=== PATIENT | female | born 1975 | race Caucasian/White ===

== ENCOUNTER 2017-05-29 17:06 | Emergency (ER) | payer OTHER ==
[2017-05-29] MEDS ORDERED: SODIUM CHLORIDE 0.9% 1,000 ML IV STA (17:36)
[2017-05-29] MEDS ORDERED: ONDANSETRON 4 MG/2 ML VIAL IVP STA (17:36)
[2017-05-29] MEDS ORDERED: HYDROmorphone 1 MG/ML 1 ML SYRINGE IVP STA (17:36)
--- NOTE | 2017-05-29 17:39 | ED ---
General Adult HPI - General Chief complaint: Abdominal Pain Stated complaint: Abd pain Time Seen by Provider: 05/29/17 17:24 Source: patient, RN notes reviewed Mode of arrival: ambulatory Limitations: no limitations - History of Present Illness Initial comments: 42-year-old female who presents emergency room today with chief complaint of lower abdominal pain with vaginal bleeding over the last 4 days. Patient does admit that she's had some spotting. States that he's had. States that had a menstrual cycle in over year and a half. Patient does admit to increased lower abdominal pain. She describes it as pressure. Patient does admit that she was treated for urinary tract infection approximately a week and a half ago finished all antibiotics. Patient denies any other complaints or symptoms at this time. Patient denies any recent fever, chills, shortness of breath, chest pain, dysuria or hematuria, constipation or diarrhea, headaches or visual changes, or any other complaints. - Related Data Home Medications Medication Instructions Recorded Confirmed Albuterol Sulfate [Proventil Hfa] 1 - 2 puff INHALATION RT-Q6H PRN 01/16/15 Metoprolol Tartrate [Lopressor] 50 mg PO DAILY 01/16/15 05/29/17 Multivitamins, Thera [Multivitamin 1 tab PO HS 01/16/15 05/29/17 (formulary)] Phentermine HCl [Adipex-P] 37.5 mg PO QAM 12/29/15 05/29/17 ALPRAZolam [Xanax] 1 mg PO DAILY PRN 05/29/17 05/29/17 Artificial Tears-Hypromellose 1 drops BOTH EYES TID PRN 05/29/17 05/29/17 [Artificial Tear Drops] Previous Rx's Medication Instructions Recorded Losartan [Cozaar] 25 mg PO DAILY #30 tab 01/18/15 Hydrocodone/Acetaminophen [Dryden 1 each PO Q6HR PRN #20 tab 05/29/17 5-325] Ondansetron Odt [Zofran ODT] 4 mg PO Q8HR PRN #20 tab 05/29/17 Allergies Allergy/AdvReac Type Severity Reaction Status Date / Time influenza virus vaccine, Allergy Unknown Verified 05/29/17 18:20 specific [Influenza Virus Vacc,Specific] amlodipine AdvReac Rapid Verified 05/29/17 18:20 Heart Rate prochlorperazine edisylate AdvReac AGITATION Verified 05/29/17 18:20 [From Compazine] prochlorperazine maleate AdvReac AGITATION Verified 05/29/17 18:20 [From Compazine] Review of Systems ROS Statement: Those systems with pertinent positive or pertinent negative responses have been documented in the HPI. ROS Other: All systems not noted in ROS Statement are negative. Past Medical History Past Medical History: Hypertension Additional Past Medical History / Comment(s): 01/16/15 Pt presents to [facility] ER with R orbital cellulitis which started last Jan,. She went to urgent care and started on clindamycin. R eye just got worse so she came into ER here yesterday and was tx with IV Abx. Eye doubled in size over nite. She went to F/u appt with her primary doctor today and was sent to ER again. R eye itches and matos and is painful down to lower R cheek. Other HX: Pt states she had a GI virus last Friday01/10/15 with N/V/D, R wrist fx with reduction x 2. History of Any Multi-Drug Resistant Organisms: None Reported Past Surgical History: Section, Tubal Ligation, Uterine Ablation Additional Past Surgical History / Comment(s): an EGD. Past Anesthesia/Blood Transfusion Reactions: No Reported Reaction Additional Past Anesthesia/Blood Transfusion Reaction / Comment(s): Pt has never recieved blood. Past Psychological History: No Psychological Hx Reported Smoking Status: Current some day smoker Past Alcohol Use History: Rare Past Drug Use History: None Reported - Past Family History Father Family Medical History: Coronary Artery Disease (CAD), Diabetes Mellitus Additional Family Medical History / Comment(s): Father has had CABG and cardiac stenting. He also suffers from agent orange exposure. Mother Family Medical History: Hypertension Sister(s) Family Medical History: No Reported History Son(s) Family Medical History: No Reported History General Exam - General Exam Comments Initial Comments: General: The patient is awake and alert, in no distress, and does not appear acutely ill. Eye: Pupils are equal, round and reactive to light, extra-ocular movements are intact. No nystagmus. There is normal conjunctiva bilaterally. No signs of icterus. Ears, nose, mouth and throat: There are moist mucous membranes and no oral lesions. Neck: The neck is supple, there is no tenderness or JVD. Cardiovascular: There is a regular rate and rhythm. No murmur, rub or gallop is appreciated. Respiratory: Lungs are clear to auscultation, respirations are non-labored, breath sounds are equal. No wheezes, stridor, rales, or rhonchi. Gastrointestinal: Normal appearance of the abdomen. Normal bowel sounds. Mild tenderness in lower Abdomen both on left and right. No rebound tenderness. No Guarding. No CVA tenderness. Musculoskeletal: Normal ROM, no tenderness. Strength 5/5. Sensation intact. Pulses equal bilaterally 2+. Neurological: A&O x 3. CN II-XII intact, There are no obvious motor or sensory deficits. Coordination appears grossly intact. Speech is normal. Skin: Skin is warm and dry and no rashes or lesions are noted. Psychiatric: Cooperative, appropriate mood & affect, normal judgment. Limitations: no limitations Course Vital Signs 05/29/17 05/29/17 17:16 18:06 Temperature 97.9 F Pulse Rate 70 64 Respiratory 16 18 Rate Blood Pressure 198/65 175/88 O2 Sat by Pulse 100 Oximetry Medical Decision Making - Medical Decision Making Case discussed in detail with attending physician Dr. Fonseca. Labs reviewed unremarkable. Patient resting comfortably in stretcher. Patient's ultrasound reviewed and does show complex enlargement of the endometrial cavity that measures 53 cm at raise the possibility of endometrial tumor. There is a 5 cm solid mass left neck region consistent with a dermoid tumor that was evident on old CT of 12/01/2015. Also discussed with the patient. Patient advised to follow-up with [facility] over the next 2 days for further evaluation. Patient will be given short prescription pain medication. Advised return here to emergency room symptoms increase worsen or for any other concerns. She states understanding and is in agreement. - Lab Data Result diagrams: 05/29/17 18:00 05/29/17 18:00 Lab Results 05/29/17 05/29/17 05/29/17 Range/Units 18:00 18:00 18:00 WBC 6.9 (3.8-10.6) k/uL RBC 5.58 H (3.80-5.40) m/uL Hgb 16.2 H (11.4-16.0) gm/dL Hct 46.1 H (34.0-46.0) % MCV 82.6 (80.0-100.0) fL MCH 29.0 (25.0-35.0) pg MCHC 35.1 (31.0-37.0) g/dL RDW 14.6 (11.5-15.5) % Plt Count 233 (150-450) k/uL Neutrophils % 68 % Lymphocytes % 22 % Monocytes % 5 % Eosinophils % 4 % Basophils % 1 % Neutrophils # 4.7 (1.3-7.7) k/uL Lymphocytes # 1.5 (1.0-4.8) k/uL Monocytes # 0.3 (0-1.0) k/uL Eosinophils # 0.3 (0-0.7) k/uL Basophils # 0.0 (0-0.2) k/uL PT (9.0-12.0) sec INR (<1.2) APTT (22.0-30.0) sec Sodium 139 (137-145) mmol/L Potassium 4.1 (3.5-5.1) mmol/L Chloride 110 H (98-107) mmol/L Carbon Dioxide 20 L (22-30) mmol/L Anion Gap 9 mmol/L BUN 11 (7-17) mg/dL Creatinine 0.60 (0.52-1.04) mg/dL Est GFR (MDRD) Af Amer >60 (>60 ml/min/1.73 sqM) Est GFR (MDRD) Non-Af >60 (>60 ml/min/1.73 sqM) Glucose 158 H (74-99) mg/dL Calcium 8.9 (8.4-10.2) mg/dL Total Bilirubin 0.4 (0.2-1.3) mg/dL AST 23 (14-36) U/L ALT 34 (9-52) U/L Alkaline Phosphatase 96 (38-126) U/L Total Protein 6.7 (6.3-8.2) g/dL Albumin 3.9 (3.5-5.0) g/dL Urine Color Yellow Urine Appearance Cloudy H (Clear) Urine pH 5.5 (5.0-8.0) Ur Specific Lar[place] 1.026 (1.001-1.035) Urine Protein 1+ H (Negative) Urine Glucose (UA) Negative (Negative) Urine Ketones Negative (Negative) Urine Blood Small H (Negative) Urine Nitrite Negative (Negative) Urine Bilirubin Negative (Negative) Urine Urobilinogen 3.0 (<2.0) mg/dL Ur Leukocyte Esterase Trace H (Negative) Urine RBC 1 (0-5) /hpf Urine WBC 4 (0-5) /hpf Ur Squamous Epith Cells 11 H (0-4) /hpf Urine Mucus Few H (None) /hpf Urine HCG, Qual (Not Detectd) 05/29/17 05/29/17 Range/Units 18:00 18:00 WBC (3.8-10.6) k/uL RBC (3.80-5.40) m/uL Hgb (11.4-16.0) gm/dL Hct (34.0-46.0) % MCV (80.0-100.0) fL MCH (25.0-35.0) pg MCHC (31.0-37.0) g/dL RDW (11.5-15.5) % Plt Count (150-450) k/uL Neutrophils % % Lymphocytes % % Monocytes % % Eosinophils % % Basophils % % Neutrophils # (1.3-7.7) k/uL Lymphocytes # (1.0-4.8) k/uL Monocytes # (0-1.0) k/uL Eosinophils # (0-0.7) k/uL Basophils # (0-0.2) k/uL PT 9.6 (9.0-12.0) sec INR 0.9 (<1.2) APTT 24.2 (22.0-30.0) sec Sodium (137-145) mmol/L Potassium (3.5-5.1) mmol/L Chloride (98-107) mmol/L Carbon Dioxide (22-30) mmol/L Anion Gap mmol/L BUN (7-17) mg/dL Creatinine (0.52-1.04) mg/dL Est GFR (MDRD) Af Amer (>60 ml/min/1.73 sqM) Est GFR (MDRD) Non-Af (>60 ml/min/1.73 sqM) Glucose (74-99) mg/dL Calcium (8.4-10.2) mg/dL Total Bilirubin (0.2-1.3) mg/dL AST (14-36) U/L ALT (9-52) U/L Alkaline Phosphatase (38-126) U/L Total Protein (6.3-8.2) g/dL Albumin (3.5-5.0) g/dL Urine Color Urine Appearance (Clear) Urine pH (5.0-8.0) Ur Specific Lar[place] (1.001-1.035) Urine Protein (Negative) Urine Glucose (UA) (Negative) Urine Ketones (Negative) Urine Blood (Negative) Urine Nitrite (Negative) Urine Bilirubin (Negative) Urine Urobilinogen (<2.0) mg/dL Ur Leukocyte Esterase (Negative) Urine RBC (0-5) /hpf Urine WBC (0-5) /hpf Ur Squamous Epith Cells (0-4) /hpf Urine Mucus (None) /hpf Urine HCG, Qual Not Detected (Not Detectd) Disposition Clinical Impression: Uterine mass Disposition: HOME SELF-CARE Condition: Good Instructions: Uterine Fibroids (ED) Additional Instructions: Please use medication as discussed. Please follow-up with [facility]/family doctor in the next 2 days. Please return to emergency room if the symptoms increase or worsen or for any other concerns. Prescriptions: Hydrocodone/Acetaminophen [Dryden 5-325] 1 each PO Q6HR PRN #20 tab PRN Reason: Pain Ondansetron Odt [Zofran ODT] 4 mg PO Q8HR PRN #20 tab PRN Reason: Nausea Referrals: Milad Sparks DO [Primary Care Provider] - 1-2 days Kali Richards MD [STAFF PHYSICIAN] - 1-2 days Time of Disposition: 19:24
[2017-05-29 18:08] VITALS: RESP 18
[2017-05-29 18:20] LABS: Basophils % (A) 1 %; CH 29.1; CHCM 35.3; Eosinophils # (A) 0.3 k/uL (0-0.7); Eosinophils % (A) 4 %; HCT 46.1 % (34.0-46.0); HDW 2.65; HGB 16.2 gm/dL (11.4-16.0); Luc # (Auto) 0.09; Luc % (Auto) 1; Lymphocytes # (A) 1.5 k/uL (1.0-4.8); Lymphocytes % (A) 22 %; MCHC 35.1 g/dL (31.0-37.0); MCV 82.6 fL (80.0-100.0); Mean Platelet Volume 7.5; Monocytes # (A) 0.3 k/uL (0-1.0); Monocytes % (A) 5 %; Neutrophils # (A) 4.7 k/uL (1.3-7.7); Neutrophils % (A) 68 %; RBC 5.58 m/uL (3.80-5.40); RDW 14.6 % (11.5-15.5); WBC 6.9 k/uL (3.8-10.6); WBC (Perox) 6.43
[2017-05-29 18:28] LABS: INR 0.9 (<1.2); Partial Thromboplastin Time 24.2 sec (22.0-30.0); Prothrombin Time 9.6 sec (9.0-12.0)
[2017-05-29 18:29] LABS: Appearance,Urine Cloudy (Clear); Bilirubin,Urine Negative (Negative); Glucose,Urine (UA) Negative (Negative); Ketones,Urine Negative (Negative); Leukocyte Esterase,Urine Trace (Negative); Mucus,Urine Few /hpf; Nitrite,Urine Negative (Negative); PH, Urine 5.5 (5.0-8.0); Particle Count 7645; Protein,Urine 1+ (Negative); RBC,Urine 1 /hpf (0-5); Specific Gravity,Urine 1.026 (1.001-1.035); Squamous Epithelial Cell,Urine 11 /hpf (0-4); UA Billing (MACRO vs. MICRO) MICRO; WBC,Urine 4 /hpf (0-5)
[2017-05-29 18:32] LABS: ALT 34 U/L (9-52); AST 23 U/L (14-36); Alkaline Phosphatase 96 U/L (38-126); Anion Gap 9 mmol/L; Blood Urea Nitrogen 11 mg/dL (7-17); Calcium 8.9 mg/dL (8.4-10.2); Carbon Dioxide 20 mmol/L (22-30); Chloride 110 mmol/L (98-107); Glucose 158 mg/dL (74-99); Non-African American GFR(MDRD) >60 (>60 ml/min/1.73 sqM); Potassium 4.1 mmol/L (3.5-5.1); Sodium 139 mmol/L (137-145); Total Bilirubin 0.4 mg/dL (0.2-1.3); Total Protein 6.7 g/dL (6.3-8.2)
--- NOTE | 2017-05-29 19:09 | US ---
EXAMINATION TYPE: US pelvis complete transvag DATE OF EXAM: 05/29/2017 COMPARISON: CT in PACS November 2015 CLINICAL HISTORY: Pelvic pain and pressure. Ablation done December 2015, no period since. History of left side dermoid TECHNIQUE: Transvaginal (TV) and Transabdominal (TA) Date of LMP: December 2015 EXAM MEASUREMENTS: Uterus: 12.0 x 6.6 x 8.3 cm Right Ovary: Not visualized with certainty Left Ovary: Not visualized with certainty 1. Uterus/Endometrium: There is an area midline that is probable enlarged uterus with a possible irr egular, fluid filled endometrium. 3. Right Ovary: Not visualized with certainty 4. Left Ovary: Not visualized with certainty 5. Bilateral Adnexa: Within the left adnexa, there is a prominent hyperechoic area visualized measur ing 5.2 x 4.4 x 4.6 cm, possible dermoid visualized on prior CT scan. 6. Posterior cul-de-sac: No free fluid visualized IMPRESSION: Ovaries are not definitely seen. There is complex enlargement of the endometrial cavity that measures 5 x 3 cm that raises the possibi lity of endometrial tumor. Follow-up is recommended. 5 cm solid mass in the left adnexal region consistent with dermoid tumor that is evident on the old C T scan of 12/01/2015.
[2017-05-29 19:30] VITALS: BP 186/84; PULSE 58; TEMP 98.1
== END 2017-05-29 19:32 | disposition home or self-care (01) ==
LOC: EC 17:06
DX: N85.8 Other specified noninflammatory disorders of uterus (principal); I10 Essential (primary) hypertension; F17.200 Nicotine dependence, unspecified, uncomplicated; Z79.899 Other long term (current) drug therapy; Z88.7 Allergy status to serum and vaccine; Z88.8 Allergy status to other drugs, medicaments and biological substances
CPT/HCPCS: 36415; 80053; 85025; 85610; 85730; 81001; 81025; 87086; 76856; 76830; 99284; 96374; 96375; 96361; J2405; J1170

== ENCOUNTER → 2017-07-29 | Outpatient (CLI) | payer OTHER ==
[2017-07-29 16:56] LABS: EKG EKG PERFORMED
[2017-07-29 17:28] LABS: Basophils # (A) 0.1 k/uL (0-0.2); Basophils % (A) 1 %; CH 29.2; CHCM 35.3; Eosinophils # (A) 0.2 k/uL (0-0.7); Eosinophils % (A) 3 %; HCT 47.2 % (34.0-46.0); HDW 2.69; Luc % (Auto) 1; Lymphocytes # (A) 1.9 k/uL (1.0-4.8); Lymphocytes % (A) 24 %; MCH 28.1 pg (25.0-35.0); MCHC 33.8 g/dL (31.0-37.0); MCV 83.1 fL (80.0-100.0); Mean Platelet Volume 7.8; Monocytes # (A) 0.4 k/uL (0-1.0); Monocytes % (A) 5 %; Neutrophils # (A) 5.4 k/uL (1.3-7.7); Neutrophils % (A) 67 %; RBC 5.68 m/uL (3.80-5.40); RDW 14.5 % (11.5-15.5); WBC (Perox) 7.61
[2017-07-29 17:41] LABS: Anion Gap 11 mmol/L; Blood Urea Nitrogen 11 mg/dL (7-17); Carbon Dioxide 22 mmol/L (22-30); Chloride 103 mmol/L (98-107); Glucose 104 mg/dL (74-99); Non-African American GFR(MDRD) >60 (>60 ml/min/1.73 sqM); Sodium 136 mmol/L (137-145)
== END | disposition home or self-care (01) ==
LOC: LABPAT 16:46
PROVIDERS: ATTEND Obstetrics & Gynecology
DX: Z01.818 Encounter for other preprocedural examination (principal); N85.7 Hematometra; R10.2 Pelvic and perineal pain; D36.9 Benign neoplasm, unspecified site; I10 Essential (primary) hypertension
CPT/HCPCS: 80051; 82565; 82947; 84520; 85025; 86850; 86900; 86901; 87086; 93005

== ENCOUNTER 2017-08-01 06:05 | Observation (INO) | payer OTHER ==
[2017-07-28 14:28] VITALS: BMI 43.2
--- NOTE | 2017-07-31 13:57 | HP ---
HISTORY AND PHYSICAL HISTORY OF PRESENT ILLNESS: The patient is a 42-year-old, 3, para 2-0-1 2 who presented to the office in approximately 2 months ago with complaints of significantly increased abdominal pain and bloating sensation. She was then sent for pelvic ultrasound and was found with a uterine "mass". This most likely represents hematometra as she has had an ablation approximately 1 to 2 years ago that developed since the time of the ablation as she has also been reporting almost daily light to heavy bleeding along with the pain. The pain is causing her to use both nonsteroidals and Blanchard 5/325 mg on a relatively daily basis. She additionally has a known history of a left dermoid approximately 5 cm in size. Given these findings, she has requested definitive therapy with hysterectomy to which we will add left salpingo-oophorectomy and most likely the right salpingectomy as well. Her history is significant for previous section and her anatomy would dictate that a da Sadi approach is the the most indicated. PAST MEDICAL HISTORY: Significant for hypertension. PAST SURGICAL HISTORY: Significant for section x2 and also the aforementioned endometrial ablation. She denies any anesthetic concerns. OBSTETRICAL HISTORY: 3, para 2-0-1-2 with 2 term sections surrounding 1 miscarriage not requiring D&C. Method of contraception is tubal ligation. GYNECOLOGIC HISTORY: Unremarkable with no history of any infections to include STDs. FAMILY HISTORY: Noncontributory. SOCIAL HISTORY: The patient is single and works [employer]. She is a former smoker, but does not smoke at this time. She reports occasional alcohol and no other social concerns. CURRENT MEDICATIONS: Current medications include: 1. Losartan daily. 2. Metoprolol daily. 3. Multivitamin daily. 4. Phentermine at the time of her last visit daily. 5. Xanax p.r.n. insomnia. 6. Additionally as noted above, she has been using Motrin 800 mg and Blanchard 5/325 mg as needed. ALLERGIES: AMLODIPINE caused bradycardia and COMPAZINE caused agitation. REVIEW OF SYSTEMS: Confined to history of present illness. PHYSICAL EXAMINATION: Vital signs are stable and the patient is afebrile. In general, this is a moderately obese, white female, in no acute distress. HEENT demonstrates PERRLA, EOMI. Her oropharynx is clear. Her neck is supple without adenopathy and the thyroid is normal to palpation. Her heart has regular rhythm and rate without murmur. Her lungs are clear to auscultation bilaterally in all li. Her abdomen is moderately obese, nondistended, has normoactive bowel sounds, is soft, nontender, and without any palpable masses, hepatosplenomegaly, or hernias. Her extremities are without any cyanosis, clubbing, or edema and are nontender to palpation bilaterally. Pelvic examination demonstrates normal external genitalia and BUS with normal vaginal mucosa and cervix. There is no cervical motion tenderness. Uterus is approximately 6 weeks in size, anteverted, mobile, nontender, normal in shape. The adnexa are nontender without any palpable masses bilaterally though there is a known dermoid present. ASSESSMENT AND PLAN: Chronic pelvic pain with presumptive hematometra and left ovarian dermoid: We discussed multiple different options and she has failed endometrial ablation. As a result, she has requested definitive therapy with removal also of the left ovary and dermoid. She is a candidate for the da Sadi approach as noted above. So we have planned for da Sadi robotically assisted laparoscopic hysterectomy with left salpingo-oophorectomy and probable right salpingectomy. The risks and complications have been discussed at length including the risk for bleeding, bleeding requiring transfusion, infection, and injury to local structures, to specifically include the bowel, bladder, and ureters. We did discuss specifically concerns of the bladder given her previous history of sections. We went on to discuss injuries that are unique to the da Sadi surgery to include thermal injury and the potential for vaginal cuff dehiscence. She has understood all these concerns and has agreed to proceed. We are scheduled for the above procedures on the morning of August 01, 2017. MMODL / IJN: [id number] /
[~2017-08-01 06:05] MED LIST: DEXAMETHASONE SOD PHOSPHATE 10 MG/ML 1 ML VIAL IV ONE; LIDOCAINE 1% 20 ML VIAL (10MG/ML) FOR IV START INTRADERMA PRN; ONDANSETRON 4 MG/2 ML VIAL IVP ONE; SCOPOLAMINE 1.5MG/72HR PATCH TRANSDERM ONE; ceFAZolin 2 GM in SODIUM CHLORIDE 0.9% 100 ML IVPB ONE
[2017-08-01 06:42] LABS: Glucose,Whole Blood 125 mg/dL (75-99)
[2017-08-01] MEDS: LACTATED RINGERS 1,000 ML IV SCH ×4 (06:44→21:37)
[2017-08-01] MEDS ORDERED: MIDAZOLAM 2 MG/2 ML VIAL IV ONE (06:53)
[2017-08-01] MEDS ORDERED: MORPHINE SULFATE 10 MG/ML SYRINGE ONE (07:32)
[2017-08-01] MEDS ORDERED: GLYCOPYRROLATE 0.2 MG/ML 2 ML VIAL ONE (07:32)
[2017-08-01] MEDS ORDERED: MIDAZOLAM 2 MG/2 ML VIAL ONE (07:32)
[2017-08-01] MEDS ORDERED: SUCCINYLCHOLINE CHLORIDE 100 MG/5 ML SYR IV ONE (07:32)
[2017-08-01] MEDS ORDERED: ROCURONIUM BROMIDE 10 MG/ML 10 ML VIAL IV ONE (07:32)
[2017-08-01] MEDS ORDERED: NEOSTIGMINE 1 MG/ML 10 ML VIAL ONE (07:32)
[2017-08-01] MEDS ORDERED: fentaNYL (PF) 50 MCG/ML 2 ML AMP ONE (07:32)
[2017-08-01] MEDS ORDERED: LIDOCAINE 1% INJ 10MG/ML (20 ML MDV) ONE (07:32)
[2017-08-01] MEDS ORDERED: PROPOFOL 10 MG/ML 20 ML VIAL IV ONE (07:32)
[2017-08-01] MEDS ORDERED: HYDROmorphone (PF) 1 MG/ML ONE (07:32)
[2017-08-01] MEDS ORDERED: diphenhydrAMINE 50 MG/ML 1 ML VIAL IVP PRN (07:42)
[2017-08-01] MEDS ORDERED: ONDANSETRON 4 MG/2 ML VIAL IVP PRN (07:42)
[2017-08-01] MEDS ORDERED: Acetaminophen-Codeine 300-30mg TAB PO PRN ×2 (07:42)
[2017-08-01] MEDS ORDERED: SIMETHICONE 80 MG CHEWABLE PO PRN (07:42)
[2017-08-01] MEDS ORDERED: IBUPROFEN 600 MG TAB PO PRN (07:42)
[2017-08-01] MEDS ORDERED: METOCLOPRAMIDE 5 MG/ML 2 ML VIAL IVP PRN (07:42)
[2017-08-01] MEDS ORDERED: ZOLPIDEM 5 MG TAB PO PRN (07:42)
[2017-08-01] MEDS ORDERED: BUPIVACAINE (PF) 0.5% 30 ML VIAL SQ ONE (08:31)
--- NOTE | 2017-08-01 10:02 | P.OP ---
Date of Procedure: 08/01/17 Preoperative Diagnosis: #1. Chronic pelvic pain #2. Dysfunctional uterine bleeding #3. Left ovarian dermoid cyst #4. Presumptive hematometra Postoperative Diagnosis: Same Procedure(s) Performed: #1. Da Sadi robotically assisted laparoscopic hysterectomy #2. Left salpingo- oophorectomy #3. Right salpingectomy #4. Diagnostic cystoscopy Anesthesia: MATIASA Surgeon: Kali Richards Internist Medical Doctor Md #1: Kierra Amor Estimated Blood Loss (ml): 50 IV fluids (ml): 1,000 Urine output (ml): 600 Pathology: other (Uterus, bilateral fallopian tubes, and left ovary) Condition: stable Disposition: PACU Operative Findings: Preoperative pelvic exam demonstrated under anesthesia a slightly larger uterus than appreciated in the office in approximately 5-6 weeks' size. I was unable to appreciate the left ovarian dermoid. Intraoperatively, the uterus was noted to be very large and bulky as well as soft consistent with the diagnosis of either adenomyosis or hematometa, the latter being confirmed during removal of the uterus. The right ovary was essentially normal to inspection with evidence of a recent ovulatory event. The left ovary was enlarged consistent with the and intraovarian cystic structure which was left intact. During removal of the uterus it was discovered that the uterine cavity was full of old blood similar in appearance to an endometrioma. The uterus, left tube and ovary were removed in one piece while the right fallopian tube was removed separately at the beginning of the case. All specimens were sent together. Following the procedure, the stitch lines all appeared to be entirely hemostatic. Cystoscopy demonstrated bilateral ureteral jets and examination of the dome of the bladder both from a cystoscopic and laparoscopic perspective demonstrated no evidence of injury. Description of Procedure: The patient was prepped and draped in usual fashion after general endotracheal anesthesia was administered by the anesthesiologist. A weighted speculum was placed and the cervix sounded to approximately 7-8 cm. As result, a 6 cm uterine manipulator was selected. The cervix was measured and a 2.5 cm Regan cup selected. A stay suture of 0 Vicryl was placed from 10:00 to 8:00 and from 2: 00 to 4:00 on the cervical clock face and firmly tied down. The Angie manipulation device was then placed and seated into the uterus properly. It was then tied down using the stay sutures. A Ramírez catheter was placed in the bladder. Attention was then turned to the abdomen where a site was selected approximately 2-3 cm above the umbilicus in the midline where an 8 mm incision was made in the transverse plane allowing insertion of a 5 mm optical trocar under direct visualization without difficulty. A pneumoperitoneum was then established. A site was selected in the left lower quadrant approximately 12 cm lateral and 4 centimeters inferior to the optical trocar where an 8 mm incision was made in the transverse plane allowing insertion of a da Sadi trocar under direct vision station without difficulty. The distance between the 2 incisions was then bisected and a site selected approximately 2-3 cm above the optical trocar for an assistant drafter port. A roughly 10 mm incision was made in the transverse plane allowing insertion of a 10 mm trocar under direct vision station without difficulty. A da Sadi port was then placed in the mirror image spot in the right lower quadrant to the left lower quadrant under direct vision station without difficulty. The scope was shifted to a side-port the 5 mm and millimeter optical trocar replaced with a 8mm da Sadi optical trocar under direct visual station. Once the trochars were seated in the proper orientation, the robot was docked to the patient and I presented to the console. The segment of right fallopian tube was removed with bipolar cautery followed by sharp cautery and removed through the assistant drafter's port for later transport to pathology with the remainder of the specimen. The utero-ovarian ligament was then transected with the [place] bipolar cautery forceps followed by cutting it sharply with the monopolar cautery scissors. This was carried out across the round ligament on that side at which time the bladder peritoneum was developed across the midline. The uterine vasculature was skeletonized to some degree and attention turned to the left side. The ovary was elevated and, as it contained what is presumptively thought to be a dermoid cyst, the infundibulopelvic ligament cauterized with the [place] and then cut sharply with the cautery scissors. The dissection was carried down and around the fallopian tube and through the round ligament using cautery as before. Uterine vasculature was then skeletonized and the remainder of the bladder peritoneum developed across the midline. As the bladder peritoneum was in excellent view, further dissection was carried out to reflect the bladder distally. There was some scarring from previous sections which was handled without difficulty. The uterine vasculature was then cauterized bilaterally with the [place] bipolar cautery forceps and then cut sharply with cautery. As the uterus was very difficult to manipulate anteriorly, the decision was made to enter the vaginal cuff anteriorly where it was quite apparent. The monopolar cautery scissors were utilized to enter sharply after insufflating the cuff on the Angie manipulator. This incision was carried around following the Regan cup. Any points of bleeding along the way were made hemostatic either with the [place] bipolar cautery or with point cautery using the scissors. The incisions were then ultimately connected posteriorly and the specimen brought towards the vagina. The size and bulk of the uterine fundus made it very difficult to deliver the uterus through the small vaginal cuff opening. Ultimately with probing and some degree of morcellation, the uterine cavity was further entered at which time a significant amount of old endometriotic- appearing blood was released confirming the diagnosis of hematometra. Once the uterus had been adequately decompressed, the uterus and left ovary were removed into the vagina. The monopolar cautery scissors were replaced with a laparoscopic suturing device and a suture was introduced into the abdomen. The O Stratafix suture was then utilized to close the vaginal cuff from the right angle to left angle without difficulty. Thorough irrigation was then carried out and the stitch lines examined and found to be hemostatic. Any small points of bleeding were made hemostatic with the [place] bipolar cautery forceps. Once it was determined that hemostasis was adequate, the 2 lateral instruments removed but the scope left in place. I then presented to the patient and removed the Ramírez catheter. A diagnostic cystoscope was placed within the bladder and the bladder filled with the sterile water. The bilateral ureteral hillock's were observed and both noted to be peristalsing without difficulty. The dome of the bladder was examined from both the cystoscopic and laparoscopic perspective with no evidence of any damage or leaking. All instrumentation was then removed and the Ramírez catheter replaced. The robot was removed from the patient and all ports removed. The skin incisions were closed with interrupted stitches of 4-0 Vicryl followed by half-inch Steri-Strips placed with Mastisol. The incisions were infused with half percent Marcaine without epinephrine, a total of 10 mL equally divided among the 4 incisions. Estimated blood loss for the case was approximately 50 mL. There were no complications. All sponge, instrument, and needle counts were correct. The patient tolerated the procedure well and proceeded to the recovery room in stable condition.
[2017-08-01] MEDS: HYDROmorphone 1 MG/ML 1 ML SYRINGE IVP PRN ×2 (10:31→10:46)
[2017-08-01] MEDS: KETOROLAC 30 MG/ML 1 ML VIAL IVP PRN ×3 (10:36→21:35)
[2017-08-01] MEDS: SENNOSIDES-DOCUSATE SODIUM 1 EACH TAB PO SCH ×2 (12:33→21:35)
[2017-08-01] MEDS: HYDROcodone/APAP 5-325MG 1 EACH TAB PO PRN ×2 (17:35→23:58)
[2017-08-02] MEDS: HYDROcodone/APAP 5-325MG 1 EACH TAB PO PRN ×2 (00:01→07:43)
[2017-08-02] MEDS: KETOROLAC 30 MG/ML 1 ML VIAL IVP PRN (07:43)
[2017-08-02] MEDS: LACTATED RINGERS 1,000 ML IV SCH (07:46)
[2017-08-02 08:00] LABS: Basophils % (A) 0 %; CH 28.3; CHCM 33.5; Eosinophils % (A) 0 %; HCT 39.7 % (34.0-46.0); HGB 13.6 gm/dL (11.4-16.0); Luc # (Auto) 0.18; Luc % (Auto) 1; Lymphocytes # (A) 1.9 k/uL (1.0-4.8); Lymphocytes % (A) 13 %; MCH 29.2 pg (25.0-35.0); MCHC 34.4 g/dL (31.0-37.0); MCV 84.9 fL (80.0-100.0); Mean Platelet Volume 7.5; Monocytes # (A) 0.4 k/uL (0-1.0); Monocytes % (A) 3 %; Neutrophils # (A) 12.2 k/uL (1.3-7.7); Neutrophils % (A) 83 %; RBC 4.67 m/uL (3.80-5.40); RDW 13.6 % (11.5-15.5); WBC 14.7 k/uL (3.8-10.6); WBC (Perox) 15.38
[2017-08-02] MEDS ORDERED: METOPROLOL TARTRATE 50 MG TAB PO SCH (09:00)
[2017-08-02] MEDS ORDERED: LOSARTAN 25 MG TAB PO SCH (09:00)
[2017-08-02] MEDS: SENNOSIDES-DOCUSATE SODIUM 1 EACH TAB PO SCH (09:12)
[2017-08-02 10:08] VITALS: BP 142/79; PULSE 75; RESP 20; TEMP 97.6
--- NOTE | 2017-08-02 10:28 | P.DS ---
Providers Date of admission: 08/02/17 08:57 Expected date of discharge: 08/02/17 Attending physician: Kali Richards Primary care physician: Milad Sparks - Discharge Diagnosis(es) (1) Chronic pelvic pain in female Current Visit: Yes Status: Acute (2) Dermoid cyst of left ovary Current Visit: Yes Status: Acute Hospital Course: The patient is a 42-year-old 3 para 2011 who presented to the office with complaints of significantly increasing pelvic pain and bloating. She had a pelvic ultrasound done which demonstrated a uterine mass. She has a history of a previous endometrial ablation and the mass was felt to be most consistent with hematometra which was leading to significant pelvic pain and dysfunctional uterine bleeding on a relatively daily basis. She additionally had a well- documented left ovarian dermoid cyst which she requested also to be removed. She requested definitive therapy and was only a candidate given her anatomy and her history of 2 previous sections for a da Sadi approach versus open. She was taken to the operating room where she underwent da Sadi robotically assisted laparoscopic hysterectomy with left salpingo-oophorectomy and right salpingectomy followed by a diagnostic cystoscopy. All of these were in an uncomplicated fashion. In the process of removal of the uterus, the uterine cavity was entered and was noted to be filled with old blood consistent with the diagnosis as outlined above. It was ultimately decompressed enough to remove through the vagina and the procedure completed in an uncomplicated fashion. Postoperatively, the patient has done quite well. Her vital signs remained stable and her temperature is afebrile. She was tolerating regular diet by the morning of postoperative day #1 was deemed stable for discharge on that day. She was discharged to home to follow-up in the office in 2 weeks for incision checks and 8 weeks routinely. Discharge instructions included calling for any significantly increased fever, abdominal pain, incisional complaints, vaginal bleeding, or anything else that concerned her. She was additionally instructed to have nothing in the vagina for at least 8 weeks time to include intercourse. She was to abstain from driving until off of all pain medications or 2 weeks' time, whichever came first. She understood her instructions and agrees to follow up as noted above. Discharge medications included all of her normal home medications as well as a prescription for [place] 5/325 mg, 1-2 by mouth every 6 hours when necessary pain, #30 dispensed with no refills. Discharge hemoglobin and hematocrit were 13.6 and 39.7 respectively. Procedures: #1. Da Sadi robotically assisted laparoscopic hysterectomy #2. Left salpingo- oophorectomy #3. Right salpingectomy #4. Diagnostic cystoscopy Patient Condition at Discharge: Good Plan - Discharge Summary New Discharge Prescriptions: No Action Metoprolol Tartrate [Lopressor] 50 mg PO DAILY Multivitamins, Thera [Multivitamin (formulary)] 1 tab PO DAILY Albuterol Sulfate [Proventil Hfa] 1 - 2 puff INHALATION Q6HR PRN PRN Reason: Shortness Of Breath Losartan [Cozaar] 25 mg PO DAILY #30 tab Phentermine HCl [Adipex-P] 37.5 mg PO QAM Ibuprofen [Motrin] 600 - 800 mg PO Q6HR PRN PRN Reason: Pain Omeprazole (Otc) 1 tab PO DAILY PRN PRN Reason: Heartburn Discharge Medication List Albuterol Sulfate [Proventil Hfa] 1 - 2 puff INHALATION Q6HR PRN 01/16/15 [ History] Metoprolol Tartrate [Lopressor] 50 mg PO DAILY 01/16/15 [History] Multivitamins, Thera [Multivitamin (formulary)] 1 tab PO DAILY 01/16/15 [History ] Losartan [Cozaar] 25 mg PO DAILY #30 tab 01/18/15 [Rx] Phentermine HCl [Adipex-P] 37.5 mg PO QAM 12/29/15 [History] Ibuprofen [Motrin] 600 - 800 mg PO Q6HR PRN 07/28/17 [History] Omeprazole (Otc) 1 tab PO DAILY PRN 07/28/17 [History] Follow up Appointment(s)/Referral(s): Kali Richards MD [STAFF PHYSICIAN] - 2 Weeks Discharge Disposition: HOME SELF-CARE
== END 2017-08-02 12:21 | disposition home or self-care (01) ==
LOC: OR 06:05 → 6PED 09:51 → OR 08-02 08:56 → 6PED 08-02 08:57
PROVIDERS: ADMIT Obstetrics & Gynecology; ATTEND Obstetrics & Gynecology
DX: D27.1 Benign neoplasm of left ovary (principal); N85.7 Hematometra; D25.1 Intramural leiomyoma of uterus; N83.8 Other noninflammatory disorders of ovary, fallopian tube and broad ligament; G89.29 Other chronic pain; I10 Essential (primary) hypertension; Z87.891 Personal history of nicotine dependence; Z79.899 Other long term (current) drug therapy; Z88.8 Allergy status to other drugs, medicaments and biological substances
CPT/HCPCS: 58573; S2900; 81025; 85025; 86850; 86900; 86901; 88307

== ENCOUNTER 2017-10-28 01:26 | Emergency (ER) | payer OTHER ==
[2017-10-28 01:36] VITALS: RESP 18; TEMP 97.5
--- NOTE | 2017-10-28 02:00 | ED ---
Abdominal Pain HPI - General Chief Complaint: Abdominal Pain Stated Complaint: Poss UTI Time Seen by Provider: 10/28/17 01:38 Source: patient Mode of arrival: ambulatory Limitations: no limitations - History of Present Illness Initial Comments: Patient has a 42-year-old woman who presents to be evaluated for abdominal back discomfort. She states that she was in her usual state of health until Friday. On Friday she had a fever but states she was not able to identify the source of that she had no other symptoms. On Friday she states she began having some symptoms she attributed to urinary tract infection, she was having some frequency and some dysuria as well as urgency. She states that over the past day to 2 she is also noticed that her urine has become cloudy. This morning she started having suprapubic discomfort that radiates towards her back. She describes it as aching, symptoms are constant, moderate intensity. She has not noted worsening or relieving factors. She states it reminds her previous urinary tract infection MD Complaint: abdominal pain Onset/Timin -: days(s) Location: suprapubic Radiation: back Migration to: no migration Severity: moderate Quality: aching Consistency: constant Improves With: nothing Associated Symptoms: dysuria - Related Data Home Medications Medication Instructions Recorded Confirmed Albuterol Sulfate [Proventil Hfa] 1 - 2 puff INHALATION RT-Q6H PRN 01/16/15 Metoprolol Tartrate [Lopressor] 50 mg PO DAILY 01/16/15 08/02/17 Multivitamins, Thera [Multivitamin 1 tab PO DAILY 01/16/15 08/02/17 (formulary)] Phentermine HCl [Adipex-P] 37.5 mg PO QAM 12/29/15 08/02/17 Ibuprofen [Motrin] 600 - 800 mg PO Q6HR PRN 07/28/17 08/02/17 Omeprazole 20 mg PO DAILY PRN 08/02/17 08/02/17 Previous Rx's Medication Instructions Recorded Losartan [Cozaar] 25 mg PO DAILY #30 tab 01/18/15 Phenazopyridine [Pyridium] 100 mg PO TID #6 tablet 10/28/17 Sulfamethox-Tmp 800-160Mg [Bactrim 1 each PO Q12HR #6 tab 10/28/17 Ds] Allergies Allergy/AdvReac Type Severity Reaction Status Date / Time influenza virus vaccine, Allergy Unknown Verified 10/28/17 01:36 specific [Influenza Virus Vacc,Specific] amlodipine AdvReac DECREASED Verified 10/28/17 01:36 HEART BEAT (30 PER MINUTE) prochlorperazine edisylate AdvReac AGITATION Verified 10/28/17 01:36 [From Compazine] prochlorperazine maleate AdvReac AGITATION Verified 10/28/17 01:36 [From Compazine] Review of Systems ROS Statement: Those systems with pertinent positive or pertinent negative responses have been documented in the HPI. ROS Other: All systems not noted in ROS Statement are negative. Constitutional: Reports: as per HPI, fever. Denies: chills Respiratory: Denies: cough, dyspnea, wheezes Cardiovascular: Denies: chest pain, palpitations, dyspnea on exertion Gastrointestinal: Reports: as per HPI, abdominal pain. Denies: nausea, vomiting , diarrhea, constipation Genitourinary: Reports: as per HPI, urgency, dysuria, frequency. Denies: discharge Musculoskeletal: Reports: as per HPI, back pain Skin: Denies: rash Neurological: Denies: headache Past Medical History Past Medical History: GERD/Reflux, Hypertension Additional Past Medical History / Comment(s): HX OF RIGHT WRIST FX., ENLARGED LIVER, STATES REACTIVE AIRWAY TO SMELLS. 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 , BORDERLINE DIABETES. History of Any Multi-Drug Resistant Organisms: None Reported Past Surgical History: Section, Hysterectomy, Tubal Ligation, Uterine Ablation Additional Past Surgical History / Comment(s): EGD. Past Anesthesia/Blood Transfusion Reactions: No Reported Reaction Additional Past Anesthesia/Blood Transfusion Reaction / Comment(s): . Past Psychological History: Anxiety Smoking Status: Current every day smoker Past Alcohol Use History: Rare Past Drug Use History: None Reported - Past Family History Father Family Medical History: Coronary Artery Disease (CAD), Diabetes Mellitus Additional Family Medical History / Comment(s): Father has had CABG and cardiac stenting. He also suffers from agent orange exposure. Mother Family Medical History: Hypertension Sister(s) Family Medical History: No Reported History Son(s) Family Medical History: No Reported History General Exam Limitations: no limitations General appearance: alert, in no apparent distress, obese Head exam: Present: atraumatic, normocephalic Eye exam: Present: normal appearance. Absent: scleral icterus, conjunctival injection Respiratory exam: Present: normal lung sounds bilaterally. Absent: respiratory distress, wheezes, rales, rhonchi, stridor Cardiovascular Exam: Present: regular rate, normal rhythm, normal heart sounds. Absent: systolic murmur, diastolic murmur, rubs, gallop GI/Abdominal exam: Present: soft. Absent: distended, tenderness, guarding, rebound, rigid, mass Extremities exam: Present: normal inspection. Absent: pedal edema Back exam: Present: normal inspection. Absent: CVA tenderness (R), CVA tenderness (L) Neurological exam: Present: alert Skin exam: Present: warm, dry, intact, normal color. Absent: rash Course Vital Signs 10/28/17 01:32 Temperature 97.5 F L Pulse Rate 75 Respiratory 18 Rate Blood Pressure 189/88 O2 Sat by Pulse 100 Oximetry Medical Decision Making - Lab Data Lab Results 10/28/17 10/28/17 Range/Units 01:40 01:40 Urine Color Colorless Urine Appearance Clear (Clear) Urine pH 6.5 (5.0-8.0) Ur Specific [place] 1.002 (1.001-1.035) Urine Protein Negative (Negative) Urine Glucose (UA) Negative (Negative) Urine Ketones Negative (Negative) Urine Blood Moderate H (Negative) Urine Nitrite Negative (Negative) Urine Bilirubin Negative (Negative) Urine Urobilinogen <2.0 (<2.0) mg/dL Ur Leukocyte Esterase Large H (Negative) Urine RBC 1 (0-5) /hpf Urine WBC 28 H (0-5) /hpf Ur Squamous Epith Cells 2 (0-4) /hpf Urine Bacteria Occasional H (None) /hpf Urine Mucus Rare H (None) /hpf Urine HCG, Qual Not Detected (Not Detectd) Disposition Clinical Impression: Urinary tract infection Disposition: HOME SELF-CARE Condition: Good Instructions: Urinary Tract Infection in Women (ED) Prescriptions: Phenazopyridine [Pyridium] 100 mg PO TID #6 tablet Sulfamethox-Tmp 800-160Mg [Bactrim Ds] 1 each PO Q12HR #6 tab Referrals: Milad Sparks DO [Primary Care Provider] - 1-2 days
[2017-10-28 02:05] LABS: Appearance,Urine Clear (Clear); Bacteria,Urine Occasional /hpf; Bilirubin,Urine Negative (Negative); Glucose,Urine (UA) Negative (Negative); Ketones,Urine Negative (Negative); Leukocyte Esterase,Urine Large (Negative); Mucus,Urine Rare /hpf; Nitrite,Urine Negative (Negative); PH, Urine 6.5 (5.0-8.0); Particle Count 2919; Protein,Urine Negative (Negative); RBC,Urine 1 /hpf (0-5); Specific Gravity,Urine 1.002 (1.001-1.035); Squamous Epithelial Cell,Urine 2 /hpf (0-4); UA Billing (MACRO vs. MICRO) MICRO; Urobilinogen,Urine <2.0 mg/dL (<2.0); WBC,Urine 28 /hpf (0-5)
[2017-10-28] MEDS ORDERED: PHENAZOPYRIDINE 100 MG TAB PO STA (02:17)
[2017-10-28] MEDS ORDERED: SULFAMETHOX-TMP 800-160MG 1 EACH TAB PO STA (02:17)
[2017-10-28 02:37] VITALS: BP 167/80; PULSE 69
== END 2017-10-28 02:35 | disposition home or self-care (01) ==
LOC: EC 01:26
DX: N39.0 Urinary tract infection, site not specified (principal); I10 Essential (primary) hypertension; E66.9 Obesity, unspecified; F17.200 Nicotine dependence, unspecified, uncomplicated; Z79.899 Other long term (current) drug therapy; Z88.7 Allergy status to serum and vaccine; Z88.8 Allergy status to other drugs, medicaments and biological substances; Z86.39 Personal history of other endocrine, nutritional and metabolic disease; Z68.41 Body mass index [BMI] 40.0-44.9, adult
CPT/HCPCS: 81001; 81025; 99284

== ENCOUNTER 2018-05-24 00:13 | Emergency (ER) | payer OTHER ==
[2018-05-24] MEDS ORDERED: SODIUM CHLORIDE 0.9% 1,000 ML IV STA (00:56)
[2018-05-24 01:14] LABS: Basophils % (A) 0 %; Eosinophils # (A) 0.2 k/uL (0-0.7); Eosinophils % (A) 2 %; HCT 45.1 % (34.0-46.0); HGB 15.6 gm/dL (11.4-16.0); Lymphocytes # (A) 1.4 k/uL (1.0-4.8); Lymphocytes % (A) 14 %; MCH 28.1 pg (25.0-35.0); MCHC 34.5 g/dL (31.0-37.0); MCV 81.3 fL (80.0-100.0); Mean Platelet Volume 7.6; Monocytes # (A) 0.5 k/uL (0-1.0); Monocytes % (A) 5 %; Neutrophils # (A) 8.2 k/uL (1.3-7.7); Neutrophils % (A) 79 %; Platelet Count 219 k/uL (150-450); RBC 5.55 m/uL (3.80-5.40); RDW 14.1 % (11.5-15.5); WBC 10.3 k/uL (3.8-10.6)
--- NOTE | 2018-05-24 01:17 | XR ---
EXAMINATION TYPE: XR chest 2V DATE OF EXAM: 05/24/2018 COMPARISON: NONE HISTORY: Chest pain TECHNIQUE: Frontal and lateral views of the chest are obtained. FINDINGS: Heart and mediastinum are normal. Lungs are clear. Diaphragm is normal. Bony thorax appear s normal. IMPRESSION: Normal chest
[2018-05-24 01:23] LABS: ALT 30 U/L (9-52); AST 18 U/L (14-36); Albumin 4.2 g/dL (3.5-5.0); Alkaline Phosphatase 93 U/L (38-126); Anion Gap 8 mmol/L; Blood Urea Nitrogen 12 mg/dL (7-17); Calcium 9.8 mg/dL (8.4-10.2); Carbon Dioxide 21 mmol/L (22-30); Chloride 110 mmol/L (98-107); Glucose 144 mg/dL (74-99); Magnesium 2.2 mg/dL (1.6-2.3); Potassium 4.3 mmol/L (3.5-5.1); Sodium 139 mmol/L (137-145); Total Bilirubin 0.3 mg/dL (0.2-1.3); Total Protein 6.9 g/dL (6.3-8.2)
[2018-05-24 01:25] LABS: Partial Thromboplastin Time 24.1 sec (22.0-30.0); Prothrombin Time 9.6 sec (9.0-12.0)
[2018-05-24 01:49] LABS: Creatine Kinase 105 U/L (30-135)
[2018-05-24 02:02] LABS: Creatine Kinase MB 0.7 ng/mL (0.0-2.4); Troponin I <0.012 ng/mL (0.000-0.034)
[2018-05-24 02:39] VITALS: RESP 15
--- NOTE | 2018-05-24 03:03 | ED ---
Recheck HPI - General Chief Complaint: Recheck/Abnormal Lab/Rx Stated Complaint: High BP, palpitations Time Seen by Provider: 05/24/18 00:29 Source: patient, RN notes reviewed, old records reviewed Mode of arrival: wheelchair Limitations: no limitations - History of Present Illness Initial Comments: 43-year-old female who reports that she's been under immense stress over the past two months presents today with your complaining of palpitations and high blood pressure. She took her blood pressure at home was 190/90. She said she took a double dose of metroprolol all is well is a Vistaril. Reports that she' s also having some episodes of palpitations. Patient said she has no chest pain shortness of breath this time. Denies any nausea vomiting diaphoresis.Patient is a smoker. She questions it for symptoms are just related to anxiety. - Related Data Home Medications Medication Instructions Recorded Confirmed Albuterol Sulfate [Proventil Hfa] 1 - 2 puff INHALATION RT-Q6H PRN 01/16/15 Metoprolol Tartrate [Lopressor] 50 mg PO DAILY 01/16/15 08/02/17 Multivitamins, Thera [Multivitamin 1 tab PO DAILY 01/16/15 08/02/17 (formulary)] Phentermine HCl [Adipex-P] 37.5 mg PO QAM 12/29/15 08/02/17 Ibuprofen [Motrin] 600 - 800 mg PO Q6HR PRN 07/28/17 08/02/17 Omeprazole 20 mg PO DAILY PRN 08/02/17 08/02/17 Previous Rx's Medication Instructions Recorded Losartan [Cozaar] 25 mg PO DAILY #30 tab 01/18/15 Phenazopyridine [Pyridium] 100 mg PO TID #6 tablet 10/28/17 Sulfamethox-Tmp 800-160Mg [Bactrim 1 each PO Q12HR #6 tab 10/28/17 Ds] Allergies Allergy/AdvReac Type Severity Reaction Status Date / Time influenza virus vaccine, Allergy Unknown Verified 05/24/18 00:22 specific [Influenza Virus Vacc,Specific] amlodipine AdvReac DECREASED Verified 05/24/18 00:22 HEART BEAT (30 PER MINUTE) prochlorperazine edisylate AdvReac AGITATION Verified 05/24/18 00:22 [From Compazine] prochlorperazine maleate AdvReac AGITATION Verified 05/24/18 00:22 [From Compazine] Review of Systems ROS Statement: Those systems with pertinent positive or pertinent negative responses have been documented in the HPI. ROS Other: All systems not noted in ROS Statement are negative. Past Medical History Past Medical History: GERD/Reflux, Hypertension Additional Past Medical History / Comment(s): HX OF RIGHT WRIST FX., ENLARGED LIVER, STATES REACTIVE AIRWAY TO SMELLS. 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 , BORDERLINE DIABETES. History of Any Multi-Drug Resistant Organisms: None Reported Past Surgical History: Section, Hysterectomy, Tubal Ligation, Uterine Ablation Additional Past Surgical History / Comment(s): EGD. Past Anesthesia/Blood Transfusion Reactions: No Reported Reaction Additional Past Anesthesia/Blood Transfusion Reaction / Comment(s): . Past Psychological History: Anxiety Smoking Status: Current every day smoker Past Alcohol Use History: Rare Past Drug Use History: None Reported - Past Family History Father Family Medical History: Coronary Artery Disease (CAD), Diabetes Mellitus Additional Family Medical History / Comment(s): Father has had CABG and cardiac stenting. He also suffers from agent orange exposure. Mother Family Medical History: Hypertension Sister(s) Family Medical History: No Reported History Son(s) Family Medical History: No Reported History General Exam - General Exam Comments Initial Comments: Well appearing 43 year old female, no distress. Limitations: no limitations General appearance: alert, in no apparent distress Head exam: Present: atraumatic, normocephalic, normal inspection Eye exam: Present: normal appearance, PERRL, EOMI. Absent: scleral icterus, conjunctival injection, periorbital swelling ENT exam: Present: normal exam, mucous membranes moist Neck exam: Present: normal inspection. Absent: tenderness, meningismus, lymphadenopathy Respiratory exam: Present: normal lung sounds bilaterally. Absent: respiratory distress, wheezes, rales, rhonchi, stridor Cardiovascular Exam: Present: normal rhythm, normal heart sounds. Absent: regular rate (Occasional PVC), systolic murmur, diastolic murmur, rubs, gallop, clicks GI/Abdominal exam: Present: soft, normal bowel sounds. Absent: distended, tenderness, guarding, rebound, rigid Extremities exam: Present: normal inspection, full ROM, normal capillary refill. Absent: tenderness, pedal edema, joint swelling, calf tenderness Back exam: Present: normal inspection Neurological exam: Present: alert, oriented X3, CN II-XII intact Course Vital Signs 05/24/18 05/24/18 05/24/18 00:17 01:33 02:38 Temperature 98.1 F Pulse Rate 77 63 58 L Respiratory 18 18 15 Rate Blood Pressure 148/90 182/78 139/72 O2 Sat by Pulse 98 99 98 Oximetry 05/24/18 03:15 Temperature 97.9 F Pulse Rate 63 Respiratory 15 Rate Blood Pressure 144/71 O2 Sat by Pulse 97 Oximetry Medical Decision Making - Medical Decision Making This patient is a 43 year old female with anxiety presents with episodes of palpitation and HTN. While in ED BP has been within normal limits. EKG shows no acute changes. She did have a few PVC while in ED. She has normal CXR and normal lab work, negative troponin. Discussed findings with patient and she is relieved. Again, no chest pain, shortness of breath. Most likely symptoms related to stress and anxiety. Discussed checking BP throughout the day, and if it is elevated to wait a few hours before rechecking. Discussed follow up with PCP may need holter monitor and discussed adjusting HTN medication. Return parameters discussed. - Lab Data Result diagrams: 05/24/18 00:46 05/24/18 00:46 Lab Results 05/24/18 05/24/18 05/24/18 Range/Units 00:46 00:46 00:46 WBC 10.3 (3.8-10.6) k/uL RBC 5.55 H (3.80-5.40) m/uL Hgb 15.6 (11.4-16.0) gm/dL Hct 45.1 (34.0-46.0) % MCV 81.3 (80.0-100.0) fL MCH 28.1 (25.0-35.0) pg MCHC 34.5 (31.0-37.0) g/dL RDW 14.1 (11.5-15.5) % Plt Count 219 (150-450) k/uL Neutrophils % 79 % Lymphocytes % 14 % Monocytes % 5 % Eosinophils % 2 % Basophils % 0 % Neutrophils # 8.2 H (1.3-7.7) k/uL Lymphocytes # 1.4 (1.0-4.8) k/uL Monocytes # 0.5 (0-1.0) k/uL Eosinophils # 0.2 (0-0.7) k/uL Basophils # 0.0 (0-0.2) k/uL PT (9.0-12.0) sec INR (<1.2) APTT (22.0-30.0) sec Sodium 139 (137-145) mmol/L Potassium 4.3 (3.5-5.1) mmol/L Chloride 110 H (98-107) mmol/L Carbon Dioxide 21 L (22-30) mmol/L Anion Gap 8 mmol/L BUN 12 (7-17) mg/dL Creatinine 0.70 (0.52-1.04) mg/dL Est GFR (CKD-EPI)AfAm >90 (>60 ml/min/1.73 sqM) Est GFR (CKD-EPI)NonAf >90 (>60 ml/min/1.73 sqM) Glucose 144 H (74-99) mg/dL Calcium 9.8 (8.4-10.2) mg/dL Magnesium 2.2 (1.6-2.3) mg/dL Total Bilirubin 0.3 (0.2-1.3) mg/dL AST 18 (14-36) U/L ALT 30 (9-52) U/L Alkaline Phosphatase 93 (38-126) U/L Total Creatine Kinase 105 (30-135) U/L CK-MB (CK-2) 0.7 (0.0-2.4) ng/mL CK-MB (CK-2) Rel Index 0.7 Troponin I <0.012 (0.000-0.034) ng/mL Total Protein 6.9 (6.3-8.2) g/dL Albumin 4.2 (3.5-5.0) g/dL 05/24/18 Range/Units 00:46 WBC (3.8-10.6) k/uL RBC (3.80-5.40) m/uL Hgb (11.4-16.0) gm/dL Hct (34.0-46.0) % MCV (80.0-100.0) fL MCH (25.0-35.0) pg MCHC (31.0-37.0) g/dL RDW (11.5-15.5) % Plt Count (150-450) k/uL Neutrophils % % Lymphocytes % % Monocytes % % Eosinophils % % Basophils % % Neutrophils # (1.3-7.7) k/uL Lymphocytes # (1.0-4.8) k/uL Monocytes # (0-1.0) k/uL Eosinophils # (0-0.7) k/uL Basophils # (0-0.2) k/uL PT 9.6 (9.0-12.0) sec INR 1.0 (<1.2) APTT 24.1 (22.0-30.0) sec Sodium (137-145) mmol/L Potassium (3.5-5.1) mmol/L Chloride (98-107) mmol/L Carbon Dioxide (22-30) mmol/L Anion Gap mmol/L BUN (7-17) mg/dL Creatinine (0.52-1.04) mg/dL Est GFR (CKD-EPI)AfAm (>60 ml/min/1.73 sqM) Est GFR (CKD-EPI)NonAf (>60 ml/min/1.73 sqM) Glucose (74-99) mg/dL Calcium (8.4-10.2) mg/dL Magnesium (1.6-2.3) mg/dL Total Bilirubin (0.2-1.3) mg/dL AST (14-36) U/L ALT (9-52) U/L Alkaline Phosphatase (38-126) U/L Total Creatine Kinase (30-135) U/L CK-MB (CK-2) (0.0-2.4) ng/mL CK-MB (CK-2) Rel Index Troponin I (0.000-0.034) ng/mL Total Protein (6.3-8.2) g/dL Albumin (3.5-5.0) g/dL 05/24/18 04:05 EKG performed at 0 40 shows normal sinus rhythm normal EKG. Ventricular rate of 61 bpm. Valeria's 150 ms. QRS ration 96 most seconds. QT QTc is 432/434 ms. - Radiology Data Radiology results: report reviewed CXR is normal. Disposition Clinical Impression: Palpitation, History of hypertension Disposition: HOME SELF-CARE Condition: Good Instructions: Palpitations (ED) Additional Instructions: Patient advised to follow-up with primary care physician within the next 1-2 days. Patient may need Holter monitor. Discussed her blood pressure medications. Check BP periodically throughout the day. Return to emergency department if any alarming signs or symptoms occur. Is patient prescribed a controlled substance at d/c from ED?: No When asked, does pt state using other controlled substances?: No Referrals: Milad Sparks DO [Primary Care Provider] - 1-2 days Time of Disposition: 03:02
[2018-05-24 03:17] VITALS: BP 144/71; PULSE 63; TEMP 97.9
== END 2018-05-24 03:15 | disposition home or self-care (01) ==
LOC: EC 00:13
DX: R00.2 Palpitations (principal); I10 Essential (primary) hypertension; K21.9 Gastro-esophageal reflux disease without esophagitis; M19.90 Unspecified osteoarthritis, unspecified site; F41.9 Anxiety disorder, unspecified; F17.200 Nicotine dependence, unspecified, uncomplicated; Z98.890 Other specified postprocedural states; Z79.899 Other long term (current) drug therapy; Z88.7 Allergy status to serum and vaccine; Z88.8 Allergy status to other drugs, medicaments and biological substances
CPT/HCPCS: 36415; 71046; 80053; 82550; 82553; 83735; 84484; 85025; 85610; 85730; 93005; 96360; 99285

== ENCOUNTER → 2018-06-05 | Outpatient (CLI) | payer OTHER ==
--- NOTE | 2018-06-17 07:28 | EM ---
EVENT MONITOR This is a 7 day event monitor starting on June 05, 2018. REFERRING PHYSICIAN: Dr. Sparks. CLINICAL INFORMATION: The patient was monitored for 7 days. The baseline rhythm appeared to be a sinus mechanism. The patient did have multiple episodes of PVCs. The patient did have also multiple episodes of ventricular bigeminy and ventricular triplet as well. Multiple episodes of sinus tachycardia noted as well. Also multiple episodes of sinus bradycardia noted as well. No evidence of any sinus pause or sinus arrest seen. No evidence of any advanced AV block seen as well. CONCLUSION: 1. This is a 7 days event monitor. 2. The patient did have multiple episodes of PVCs noted. 3. Patient did have multiple episodes of ventricular bigeminy as well as ventricular trigeminy. 4. The patient did have an episode of sinus bradycardia with a heart rate of 41 beats per minute at 11 o'clock in the morning. 5. Patient reported no symptoms. MMODL / IJN: [id number] /
== END | disposition home or self-care (01) ==
LOC: RADECHMAIN 12:12
PROVIDERS: ATTEND Family Medicine
DX: I49.3 Ventricular premature depolarization (principal); R00.8 Other abnormalities of heart beat; I48.1 Persistent atrial fibrillation; I10 Essential (primary) hypertension
CPT/HCPCS: 93270; 93271

== ENCOUNTER → 2018-09-16 | Outpatient (CLI) | payer OTHER ==
--- NOTE | 2018-09-17 10:24 | MM ---
Reason for exam: screening (asymptomatic). Last mammogram was performed 3 years ago. History: Patient is postmenopausal. Family history of breast cancer. Physical Findings: A clinical breast exam by your physician is recommended on an annual basis and results should be correlated with mammographic findings. MG Screening Mammo w CAD Bilateral CC and MLO view(s) were taken. XCCL view(s) were taken of the right breast. Prior study comparison: September 04, 2015, bilateral MG screening mammo w CAD. April 22, 2002, bilateral diagnostic mammogram. There are scattered fibroglandular densities. There are benign appearing round calcifications in the right breast. There is no discrete abnormality. ASSESSMENT: Benign, BI-RAD 2 RECOMMENDATION: Routine screening mammogram of both breasts in 1 year.
== END | disposition home or self-care (01) ==
LOC: RADMAMWWP 11:20
PROVIDERS: ATTEND Family Medicine
DX: Z12.31 Encounter for screening mammogram for malignant neoplasm of breast (principal)
CPT/HCPCS: 77067

== ENCOUNTER 2018-11-25 19:40 | Emergency (ER) | payer OTHER ==
[2018-11-25] MEDS ORDERED: SODIUM CHLORIDE 0.9% 1,000 ML IV STA (20:28)
[2018-11-25] MEDS ORDERED: KETOROLAC 30 MG/ML 1 ML VIAL IVP STA (20:30)
--- NOTE | 2018-11-25 20:30 | ED ---
General Adult HPI - General Chief complaint: Nausea/Vomiting/Diarrhea Stated complaint: Fever Source: patient Mode of arrival: ambulatory Limitations: no limitations - Related Data Home Medications Medication Instructions Recorded Confirmed Albuterol Sulfate [Proventil Hfa] 1 - 2 puff INHALATION RT-Q6H PRN 01/16/15 ALPRAZolam [Xanax] 1 mg PO DAILY PRN 11/25/18 11/25/18 Losartan/Hydrochlorothiazide 1 tab PO DAILY 11/25/18 11/25/18 [Losartan-Hctz 100-25 mg Tab] Metoprolol Tartrate 75 mg PO HS 11/25/18 11/25/18 Multivitamins, Thera [Multivitamin 1 tab PO DAILY 11/25/18 11/25/18 (formulary)] Previous Rx's Medication Instructions Recorded Amoxic-Pot Clav 875-125Mg 1 tab PO BID 5 Days #10 tab 11/25/18 [Augmentin 875-125] Oxymetazoline 0.05% Nasl [place] 3 spray EA NOSTRIL TID #1 bottle 11/25/18 [Afrin 0.05% Nasal [place]] Allergies Allergy/AdvReac Type Severity Reaction Status Date / Time influenza virus vaccine, Allergy Unknown Verified 11/25/18 21:08 specific [Influenza Virus Vacc,Specific] amlodipine AdvReac DECREASED Verified 11/25/18 21:08 HEART BEAT (30 PER MINUTE) prochlorperazine edisylate AdvReac AGITATION Verified 11/25/18 21:08 [From Compazine] prochlorperazine maleate AdvReac AGITATION Verified 11/25/18 21:08 [From Compazine] Review of Systems ROS Statement: Those systems with pertinent positive or pertinent negative responses have been documented in the HPI. ROS Other: All systems not noted in ROS Statement are negative. Past Medical History Past Medical History: GERD/Reflux, Hypertension Additional Past Medical History / Comment(s): HX OF RIGHT WRIST FX., ENLARGED LIVER, STATES REACTIVE AIRWAY TO SMELLS. 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 History of Any Multi-Drug Resistant Organisms: None Reported Past Surgical History: Section, Hysterectomy, Tubal Ligation, Uterine Ablation Additional Past Surgical History / Comment(s): EGD. Past Anesthesia/Blood Transfusion Reactions: No Reported Reaction Additional Past Anesthesia/Blood Transfusion Reaction / Comment(s): . Past Psychological History: Anxiety Smoking Status: Former smoker Past Alcohol Use History: Rare Past Drug Use History: Marijuana - Past Family History Father Family Medical History: Coronary Artery Disease (CAD), Diabetes Mellitus Additional Family Medical History / Comment(s): Father has had CABG and cardiac stenting. He also suffers from agent orange exposure. Mother Family Medical History: Hypertension Sister(s) Family Medical History: No Reported History Son(s) Family Medical History: No Reported History General Exam Limitations: no limitations Course Vital Signs 11/25/18 11/25/18 20:06 22:13 Temperature 98.7 F 98.8 F Pulse Rate 70 66 Respiratory 20 18 Rate Blood Pressure 136/92 118/81 O2 Sat by Pulse 98 98 Oximetry Medical Decision Making - Medical Decision Making Dictation was produced using [employer] dictation software. please excuse any grammatical, word or spelling errors. Chief Complaint:-year-old female past medical history of GERD, hypertension presents with feelings of generalized malaise, nasal congestion. History of Present Illness: It is a 43-year-old female. She's been suffering from upper URI symptoms 3 days. Patient was being treated for pneumonia last month. She was feeling relatively okay recently however her symptoms is nausea , right-sided flank pain. Denies any abdominal pain. No urinary symptoms. Patient has also some bad conjunctivitis. The ROS documented in this emergency department record has been reviewed and confirmed by me. Those systems with pertinent positive or negative responses have been documented in the HPI. All other systems are other negative and/or noncontributory. PHYSICAL EXAM: General Impression: Alert and oriented x3, not in acute distress HEENT: Normocephalic atraumatic, extra-ocular movements intact, pupils equal and reactive to light bilaterally, mucous membranes moist. Cardiovascular: Heart regular rate and rhythm, S1&S2 audible, no murmurs, rubs or gallops Chest: Lungs clear to auscultation bilaterally, no rhonchi, no wheeze, no rales Abdomen: Bowel sounds present, abdomen soft, non-tender, non-distended, no organomegaly Musculoskeletal: Pulses present and equal in all extremities, no peripheral edema Motor: Power 5/5 bilaterally, no focal deficits noted Neurological: CN II-XII grossly intact, no focal motor or sensory deficits noted Skin: Intact with no visualized rashes Psych: Normal affect and mood ED course: 43-year-old female presents with fever, URI type symptoms and generalized malaise. Vitals as upon arrival are within acceptable limits.Laboratory evaluation obtained. CBC unremarkable. Metabolic panel is unremarkable. UA is negative. Influenza test negative. Chest x-ray obtained showing no acute processes. Patient given intravenous fluids and Tylenol. This point there is no signs or symptoms of serious bacterial infection. However there is a possibility of sinusitis. Patient given steroids. She given prescription for Afrin and Augmentin. Told to follow-up with her primary care physician upon discharge. - Lab Data Result diagrams: 11/25/18 20:40 11/25/18 20:40 Lab Results 11/25/18 11/25/18 11/25/18 Range/Units 20:40 20:40 20:40 WBC 4.0 (3.8-10.6) k/uL RBC 5.51 H (3.80-5.40) m/uL Hgb 15.0 (11.4-16.0) gm/dL Hct 45.3 (34.0-46.0) % MCV 82.2 (80.0-100.0) fL MCH 27.2 (25.0-35.0) pg MCHC 33.1 (31.0-37.0) g/dL RDW 14.1 (11.5-15.5) % Plt Count 168 (150-450) k/uL Neutrophils % 49 % Lymphocytes % 37 % Monocytes % 7 % Eosinophils % 3 % Basophils % 1 % Neutrophils # 1.9 (1.3-7.7) k/uL Lymphocytes # 1.5 (1.0-4.8) k/uL Monocytes # 0.3 (0-1.0) k/uL Eosinophils # 0.1 (0-0.7) k/uL Basophils # 0.0 (0-0.2) k/uL Sodium 138 (137-145) mmol/L Potassium 4.4 (3.5-5.1) mmol/L Chloride 108 H (98-107) mmol/L Carbon Dioxide 21 L (22-30) mmol/L Anion Gap 9 mmol/L BUN 8 (7-17) mg/dL Creatinine 0.56 (0.52-1.04) mg/dL Est GFR (CKD-EPI)AfAm >90 (>60 ml/min/1.73 sqM) Est GFR (CKD-EPI)NonAf >90 (>60 ml/min/1.73 sqM) Glucose 105 H (74-99) mg/dL Calcium 8.6 (8.4-10.2) mg/dL Total Bilirubin 0.6 (0.2-1.3) mg/dL AST 30 (14-36) U/L ALT 26 (9-52) U/L Alkaline Phosphatase 70 (38-126) U/L Total Protein 7.1 (6.3-8.2) g/dL Albumin 4.0 (3.5-5.0) g/dL Lipase 64 (23-300) U/L Urine Color Urine Appearance (Clear) Urine pH (5.0-8.0) Ur Specific [place] (1.001-1.035) Urine Protein (Negative) Urine Glucose (UA) (Negative) Urine Ketones (Negative) Urine Blood (Negative) Urine Nitrite (Negative) Urine Bilirubin (Negative) Urine Urobilinogen (<2.0) mg/dL Ur Leukocyte Esterase (Negative) Influenza Type A RNA Not Detected (Not Detectd) Influenza Type B (PCR) Not Detected (Not Detectd) 11/25/18 Range/Units Unknown WBC (3.8-10.6) k/uL RBC (3.80-5.40) m/uL Hgb (11.4-16.0) gm/dL Hct (34.0-46.0) % MCV (80.0-100.0) fL MCH (25.0-35.0) pg MCHC (31.0-37.0) g/dL RDW (11.5-15.5) % Plt Count (150-450) k/uL Neutrophils % % Lymphocytes % % Monocytes % % Eosinophils % % Basophils % % Neutrophils # (1.3-7.7) k/uL Lymphocytes # (1.0-4.8) k/uL Monocytes # (0-1.0) k/uL Eosinophils # (0-0.7) k/uL Basophils # (0-0.2) k/uL Sodium (137-145) mmol/L Potassium (3.5-5.1) mmol/L Chloride (98-107) mmol/L Carbon Dioxide (22-30) mmol/L Anion Gap mmol/L BUN (7-17) mg/dL Creatinine (0.52-1.04) mg/dL Est GFR (CKD-EPI)AfAm (>60 ml/min/1.73 sqM) Est GFR (CKD-EPI)NonAf (>60 ml/min/1.73 sqM) Glucose (74-99) mg/dL Calcium (8.4-10.2) mg/dL Total Bilirubin (0.2-1.3) mg/dL AST (14-36) U/L ALT (9-52) U/L Alkaline Phosphatase (38-126) U/L Total Protein (6.3-8.2) g/dL Albumin (3.5-5.0) g/dL Lipase (23-300) U/L Urine Color Yellow Urine Appearance Clear (Clear) Urine pH 5.5 (5.0-8.0) Ur Specific [place] 1.010 (1.001-1.035) Urine Protein Negative (Negative) Urine Glucose (UA) Negative (Negative) Urine Ketones Negative (Negative) Urine Blood Negative (Negative) Urine Nitrite Negative (Negative) Urine Bilirubin Negative (Negative) Urine Urobilinogen <2.0 (<2.0) mg/dL Ur Leukocyte Esterase Negative (Negative) Influenza Type A RNA (Not Detectd) Influenza Type B (PCR) (Not Detectd) Disposition Clinical Impression: Sinusitis Disposition: HOME SELF-CARE Condition: Good Instructions: Sinusitis (ED) Prescriptions: Amoxic-Pot Clav 875-125Mg [Augmentin 875-125] 1 tab PO BID 5 Days #10 tab Oxymetazoline 0.05% Nasl [place] [Afrin 0.05% Nasal [place]] 3 spray EA NOSTRIL TID #1 bottle Is patient prescribed a controlled substance at d/c from ED?: No Referrals: Milad Sparks DO [Primary Care Provider] - 1-2 days Time of Disposition: 22:59
[2018-11-25] MEDS ORDERED: ACETAMINOPHEN IV (For NPO) 1,000 MG in EMPTY BAG 1 BAG IVPB ONE (20:45)
[2018-11-25 21:10] LABS: Basophils % (A) 1 %; Eosinophils # (A) 0.1 k/uL (0-0.7); Eosinophils % (A) 3 %; HCT 45.3 % (34.0-46.0); Lymphocytes # (A) 1.5 k/uL (1.0-4.8); Lymphocytes % (A) 37 %; MCH 27.2 pg (25.0-35.0); MCHC 33.1 g/dL (31.0-37.0); MCV 82.2 fL (80.0-100.0); Monocytes # (A) 0.3 k/uL (0-1.0); Monocytes % (A) 7 %; Neutrophils # (A) 1.9 k/uL (1.3-7.7); Neutrophils % (A) 49 %; Platelet Count 168 k/uL (150-450); RBC 5.51 m/uL (3.80-5.40); RDW 14.1 % (11.5-15.5)
[2018-11-25 21:10] LABS: Appearance,Urine Clear (Clear); Bilirubin,Urine Negative (Negative); Blood,Urine Negative (Negative); Color,Urine Yellow; Glucose,Urine (UA) Negative (Negative); Ketones,Urine Negative (Negative); Leukocyte Esterase,Urine Negative (Negative); Nitrite,Urine Negative (Negative); PH, Urine 5.5 (5.0-8.0); Protein,Urine Negative (Negative); Urobilinogen,Urine <2.0 mg/dL (<2.0)
[2018-11-25 21:23] LABS: ALT 26 U/L (9-52); AST 30 U/L (14-36); Alkaline Phosphatase 70 U/L (38-126); Anion Gap 9 mmol/L; Blood Urea Nitrogen 8 mg/dL (7-17); Calcium 8.6 mg/dL (8.4-10.2); Carbon Dioxide 21 mmol/L (22-30); Chloride 108 mmol/L (98-107); Glucose 105 mg/dL (74-99); Lipase 64 U/L (23-300); Potassium 4.4 mmol/L (3.5-5.1); Sodium 138 mmol/L (137-145); Total Bilirubin 0.6 mg/dL (0.2-1.3); Total Protein 7.1 g/dL (6.3-8.2)
--- NOTE | 2018-11-25 21:24 | XR ---
EXAMINATION TYPE: XR chest 2V DATE OF EXAM: 11/25/2018 COMPARISON: 05/24/2018 HISTORY: Fever TECHNIQUE: Frontal and lateral views of the chest are obtained. FINDINGS: Heart and mediastinum are normal. Lungs are clear. Diaphragm is normal. Bony thorax appear s normal. IMPRESSION: Normal chest. No change.
[2018-11-25] MEDS ORDERED: DEXAMETHASONE SOD PHOSPHATE 10 MG/ML 1 ML VIAL IV STA (22:57)
[2018-11-25 23:26] VITALS: BP 139/79; PULSE 88; RESP 18; TEMP 97.7
== END 2018-11-25 23:26 | disposition home or self-care (01) ==
LOC: EC 19:40
DX: J32.9 Chronic sinusitis, unspecified (principal); R50.9 Fever, unspecified; I10 Essential (primary) hypertension; Z87.891 Personal history of nicotine dependence; Z88.7 Allergy status to serum and vaccine; Z88.8 Allergy status to other drugs, medicaments and biological substances; Z79.899 Other long term (current) drug therapy
CPT/HCPCS: 36415; 80053; 83690; 85025; 81003; 87502; 71046; 99283; 96365; 96375 ×2; J1100; J1885; J0131

== ENCOUNTER 2025-05-16 10:42 | Emergency (ER) | payer OTHER ==
[2025-05-16 11:11] LABS: Bilirubin,Urine Negative (Negative); Blood,Urine Large (Negative); Budding Yeast,Urine Moderate /hpf; Color,Urine Light Red; Glucose,Urine (UA) Negative (Negative); Ketones,Urine Negative (Negative); Leukocyte Esterase,Urine Large (Negative); Mucus,Urine Occasional /hpf; Nitrite,Urine Negative (Negative); PH, Urine 7.0 (5.0-8.0); Protein,Urine Trace (Negative); RBC,Urine >182 /hpf (0-5); Specific Gravity,Urine 1.014 (1.001-1.035); Squamous Epithelial Cell,Urine 2 /hpf (0-4); Urobilinogen,Urine <2.0 mg/dL (<2.0); WBC,Urine 57 /hpf (0-5)
--- NOTE | 2025-05-16 12:46 | ED ---
General Adult HPI - General Source: patient, RN notes reviewed Mode of arrival: ambulatory Limitations: no limitations <Glendy Isabel - Last Filed: 05/18/25 19:54> <Jo Davis - Last Filed: 05/19/25 21:22> - General Chief complaint: Urogenital Stated complaint: Blood in urine Time Seen by Provider: 05/16/25 11:00 - History of Present Illness Initial comments: 50-year-old female presenting to emergency room with complaints of acute hematuria that started this morning. Patient states over the past few days she felt like she was beginning to experience UTI that she was having dysuria and increased urinary frequency and urgency. States that when she went to use the bath this morning she noticed that there was bright red blood within her urine and experience dysuria. Patient denies suprapubic tenderness, flank pain, nausea, vomiting, fevers, chills, vaginal discharge or odor. (Glendy Isabel) - Related Data Home Medications Medication Instructions Recorded Confirmed Losartan/Hydrochlorothiazide 1 tab PO DAILY 11/25/18 05/16/25 [Losartan-Hctz 100-25 mg Tab] Albuterol Sulfate [Ventolin HFA] 2 puff INHALATION RT-QID PRN 05/16/25 05/16/25 Previous Rx's Medication Instructions Recorded Fluconazole [Diflucan] 200 mg PO DAILY 14 Days #14 tab 05/16/25 Allergies Allergy/AdvReac Type Severity Reaction Status Date / Time influenza virus vaccine, Allergy Unknown Verified 05/16/25 14:56 specific [Influenza Virus Vacc,Specific] amlodipine AdvReac DECREASED Verified 05/16/25 14:56 HEART BEAT (30 PER MINUTE) prochlorperazine edisylate AdvReac AGITATION Verified 05/16/25 14:56 [From Compazine] prochlorperazine maleate AdvReac AGITATION Verified 05/16/25 14:56 [From Compazine] Review of Systems ROS Other: All systems not noted in ROS Statement are negative. <Glendy Isabel - Last Filed: 05/18/25 19:54> ROS Other: All systems not noted in ROS Statement are negative. <Jo Davis - Last Filed: 05/19/25 21:22> ROS Statement: Those systems with pertinent positive or pertinent negative responses have been documented in the HPI. Past Medical History Past Medical History: Asthma, Diabetes Mellitus, GERD/Reflux, Hypertension Additional Past Medical History / Comment(s): HX OF RIGHT WRIST FX., ENLARGED LIVER, STATES REACTIVE AIRWAY TO SMELLS. 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 History of Any Multi-Drug Resistant Organisms: None Reported Past Surgical History: Section, Hysterectomy, Tubal Ligation, Uterine Ablation Additional Past Surgical History / Comment(s): EGD. Past Anesthesia/Blood Transfusion Reactions: No Reported Reaction Additional Past Anesthesia/Blood Transfusion Reaction / Comment(s): . Past Psychological History: Anxiety Smoking Status: Vaper Past Alcohol Use History: Rare Past Drug Use History: Marijuana - Past Family History Father Family Medical History: Coronary Artery Disease (CAD), Diabetes Mellitus Additional Family Medical History / Comment(s): Father has had CABG and cardiac stenting. He also suffers from agent orange exposure. Mother Family Medical History: Hypertension Sister(s) Family Medical History: No Reported History Son(s) Family Medical History: No Reported History <Glendy Isabel - Last Filed: 05/18/25 19:54> General Exam Limitations: no limitations Neck exam: Present: normal inspection. Absent: tenderness, meningismus, lymphadenopathy Respiratory exam: Present: normal lung sounds bilaterally. Absent: respiratory distress, wheezes, rales, rhonchi, stridor Cardiovascular Exam: Present: regular rate, normal rhythm, normal heart sounds. Absent: systolic murmur, diastolic murmur, rubs, gallop, clicks GI/Abdominal exam: Present: soft, normal bowel sounds. Absent: distended, tenderness, guarding, rebound, rigid Extremities exam: Present: normal inspection, full ROM, normal capillary refill. Absent: tenderness, pedal edema, joint swelling, calf tenderness Back exam: Present: normal inspection. Absent: CVA tenderness (R), CVA tenderness (L) Skin exam: Present: warm, dry, intact, normal color. Absent: rash <Glendy Isabel - Last Filed: 05/18/25 19:54> Course Vital Signs 05/16/25 05/16/25 10:45 15:24 Temperature 97.8 F 98.3 F Pulse Rate 76 84 Respiratory 20 18 Rate Blood Pressure 183/112 161/94 O2 Sat by Pulse 100 97 Oximetry Medical Decision Making - Lab Data Result diagrams: 05/16/25 12:59 05/16/25 12:59 <JohnwendyGlendy - Last Filed: 05/18/25 19:54> - Lab Data Result diagrams: 05/16/25 12:59 05/16/25 12:59 <Jo Davis - Last Filed: 05/19/25 21:22> - Medical Decision Making Was pt. sent in by a medical professional or institution (, PA, FLIGHT AGENT, urgent care, hospital, or [facility]...) When possible be specific @ -No Did you speak to anyone other than the patient for history (EMS, parent, family, police, friend...)? What history was obtained from this source @ -No Did you review nursing and triage notes (agree or disagree)? Why? @ -I reviewed and agree with nursing and triage notes Were old charts reviewed (outside hosp., previous admission, EMS record, old EKG, old radiological studies, urgent care reports/EKG's, [facility] records)? Report findings @ -No old charts were reviewed Differential Diagnosis (chest pain, altered mental status, abdominal pain women, abdominal pain men, vaginal bleeding, weakness, fever, dyspnea, syncope, headache, dizziness, GI bleed, back pain, seizure, CVA, palpatations, mental health, musculoskeletal)? @ -Differential Abdominal Pain Women: Appendicitis, Cholecystitis, diverticulosis, ischemic bowel, pancreatitis, hepatitis, UTI, gastroenteritis, AAA, incarcerated hernia, bowel obstruction, constipation, inflammatory bowel, hepatitis, peptic ulcer disease, splenic infarction, perforated viscus, vulvitis, ovarian torsion, PID, kidney stone, placenta abruption, this is not meant to be an all-inclusive list EKG interpreted by me (3pts min.). @ -None X-rays interpreted by me (1pt min.). @ -None done CT interpreted by me (1pt min.). @ -CT imaging of the abdomen and pelvis with IV contrast reveals no suspicious abnormality to account for hematuria, urinary bladder is normal, kidneys no evidence of masses no hydronephrosis no cysts or renal stones. U/S interpreted by me (1pt. min.). @ -None done What testing was considered but not performed or refused? (CT, X-rays, U/S, labs)? Why? @ -None What meds were considered but not given or refused? Why? @ -None Did you discuss the management of the patient with other professionals (professionals i.e. , PA, FLIGHT AGENT, lab, RT, psych nurse, pediatric social worker, welding machine operator electro gas, t eacher, [employer]ad[employer] plans staff officer, immigration case manager)? Give summary @ -No Was smoking cessation discussed for >3mins.? @ -No Was critical care preformed (if so, how long)? @ -No Were there social determinants of health that impacted care today? How? (Homelessness, low income, unemployed, alcoholism, drug addiction, transportation, low edu. Level, literacy, decrease access to med. care, long-term, rehab)? @ -No Was there de-escalation of care discussed even if they declined (Discuss DNR or withdrawal of care, Hospice)? DNR status @ -No What co-morbidities impacted this encounter? (DM, HTN, Smoking, COPD, CAD, Cance r, CVA, ARF, Chemo, Hep., AIDS, mental health diagnosis, sleep apnea, morbid obesity)? @ -None Was patient admitted / discharged? Hospital course, mention meds given and route, prescriptions, significant lab abnormalities, going to OR and other pertinent info. @ discharged. 50-year-old male presenting for acute hematuria. Overall patient is well-appearing and abdominal examination is unremarkable. Patient's laboratory testing is unremarkable. Urinalysis consistent with blood and inf ection with red cells, leukocytes, yeast and white cells. CT imaging is unremarkable. Patient's urine is sent for culture. She is treated with a dose of Rocephin and outpatient antifungal for treatment of hemorrhagic cystitis with candidal UTI. Recommend that patient have her urine rechecked after antifungals are completed and return parameters have been discussed. Case discussed with my attending Dr. Davis Undiagnosed new problem with uncertain prognosis? @ -No Drug Therapy requiring intensive monitoring for toxicity (Heparin, Nitro, Insulin, Cardizem)? @ -No Were any procedures done? @ -No Diagnosis/symptom? @ -Candidal UTI, hematuria, hemorrhagic cystitis Acute, or Chronic, or Acute on Chronic? @ -Acute Uncomplicated (without systemic symptoms) or Complicated (systemic symptoms)? @ -Uncomplicated Side effects of treatment? @ -No Exacerbation, Progression, or Severe Exacerbation? @ -No Poses a threat to life or bodily function? How? (Chest pain, [place], ID, pneumonia, PE, COPD, DKA, ARF, appy, cholecystitis, CVA, Diverticulitis, Homicidal, Suicidal, threat to staff... and all critical care pts) @ -No (Glendy Isabel) - Lab Data Lab Results 05/16/25 05/16/25 05/16/25 Range/Units 11:00 12:59 12:59 WBC 8.08 (4.50-10.00) 10*3/uL RBC 5.31 H (4.10-5.20) 10*6/uL Hgb 15.2 H (12.0-15.0) g/dL Hct 42.7 (37.2-46.3) % MCV 80.4 (80.0-97.0) fL MCH 28.6 (27.0-32.0) pg MCHC 35.6 (32.0-37.0) g/dL Plt Count 224 (140-440) 10*3/uL MPV 10.0 (9.5-12.2) fL Immature Gran % (Auto) 0.2 % Neutrophils % 85.5 % Lymphocytes % 10.1 % Monocytes % 3.8 % Eosinophils % 0.0 % Basophils % 0.4 % Immature Gran # 0.02 (0.00-0.04) 10*3/uL Neutrophils # 6.90 (1.80-7.70) 10*3/uL Lymphocytes # 0.82 L (0.90-5.00) 10*3/uL Monocytes # 0.31 (0.20-1.00) 10*3/uL Eosinophils # 0.00 L (0.04-0.35) 10*3/uL Basophils # 0.03 (0.00-0.10) 10*3/uL Sodium 138 (137-145) mmol/L Potassium 4.0 (3.5-5.1) mmol/L Chloride 105 (98-107) mmol/L Carbon Dioxide 21 L (22-30) mmol/L Anion Gap 12 mmol/L BUN 9 (7-17) mg/dL Creatinine 0.48 L (0.52-1.04) mg/dL Est GFR (CKD-EPI)AfAm >90 (>60 ml/min/1.73 sqM) Est GFR (CKD-EPI)NonAf >90 (>60 ml/min/1.73 sqM) Glucose 117 H (74-99) mg/dL Calcium 9.9 (8.4-10.2) mg/dL Total Bilirubin 0.6 (0.2-1.3) mg/dL AST 22 (14-36) U/L ALT 17 (4-34) U/L Alkaline Phosphatase 84 (38-126) U/L Total Protein 7.7 (6.3-8.2) g/dL Albumin 4.9 (3.5-5.0) g/dL Urine Color Light Red Urine Appearance Cloudy H (Clear) Urine pH 7.0 (5.0-8.0) Ur Specific [place] 1.014 (1.001-1.035) Urine Protein Trace H (Negative) Urine Glucose (UA) Negative (Negative) Urine Ketones Negative (Negative) Urine Blood Large H (Negative) Urine Nitrite Negative (Negative) Urine Bilirubin Negative (Negative) Urine Urobilinogen <2.0 (<2.0) mg/dL Ur Leukocyte Esterase Large H (Negative) Urine RBC >182 H (0-5) /hpf Urine WBC 57 H (0-5) /hpf Ur Squamous Epith Cells 2 (0-4) /hpf Urine Mucus Occasional H (None) /hpf Urine Yeast (Budding) Moderate H (None) /hpf Disposition Is patient prescribed a controlled substance at d/c from ED?: No Time of Disposition: 14:36 <Glendy Isabel - Last Filed: 05/18/25 19:54> <Jo Davis - Last Filed: 05/19/25 21:22> Clinical Impression: Hematuria, Candidal UTI (urinary tract infection) Disposition: HOME SELF-CARE Condition: Good Instructions (If sedation given, give patient instructions): Urinary Tract Infection in Women (DC) Additional Instructions: Please return to the Emergency Department if symptoms worsen or any other concerns. Prescriptions: Fluconazole [Diflucan] 200 mg PO DAILY 14 Days #14 tab Referrals: None,Stated [Primary Care Provider] - 1-2 days Leonila Wagoner FNPBC [REFERRING] - 1-2 days (Contact a primary care office to become established with a provider. ) Jesus Carbone MD [STAFF PHYSICIAN] - 1-2 days Forms: Area PCPs
[2025-05-16 13:12] LABS: Basophils # (A) 0.03 10*3/uL (0.00-0.10); Basophils % (A) 0.4 %; Eosinophils # (A) 0.00 10*3/uL (0.04-0.35); Eosinophils % (A) 0.0 %; HCT 42.7 % (37.2-46.3); HGB 15.2 g/dL (12.0-15.0); Lymphocytes # (A) 0.82 10*3/uL (0.90-5.00); Lymphocytes % (A) 10.1 %; MCH 28.6 pg (27.0-32.0); MCHC 35.6 g/dL (32.0-37.0); MCV 80.4 fL (80.0-97.0); Monocytes # (A) 0.31 10*3/uL (0.20-1.00); Monocytes % (A) 3.8 %; Neutrophils # (A) 6.90 10*3/uL (1.80-7.70); Neutrophils % (A) 85.5 %; Platelet Count 224 10*3/uL (140-440); RBC 5.31 10*6/uL (4.10-5.20); RDW 12.6 % (11.5-14.5); WBC 8.08 10*3/uL (4.50-10.00)
[2025-05-16 13:31] LABS: ALT 17 U/L (4-34); AST 22 U/L (14-36); African American GFR (CKD) >90 (>60 ml/min/1.73 sqM); Albumin 4.9 g/dL (3.5-5.0); Alkaline Phosphatase 84 U/L (38-126); Anion Gap 12 mmol/L; Blood Urea Nitrogen 9 mg/dL (7-17); Calcium 9.9 mg/dL (8.4-10.2); Carbon Dioxide 21 mmol/L (22-30); Chloride 105 mmol/L (98-107); Glucose 117 mg/dL (74-99); Non-African American GFR(CKD) >90 (>60 ml/min/1.73 sqM); Potassium 4.0 mmol/L (3.5-5.1); Sodium 138 mmol/L (137-145); Total Protein 7.7 g/dL (6.3-8.2)
--- NOTE | 2025-05-16 14:28 | CT ---
EXAMINATION TYPE: CT abdomen pelvis wo con DATE OF EXAM: 05/16/2025 2:03 PM COMPARISON: 12/01/2015 CLINICAL INDICATION: Female, 50 years old with history of hematuria, Hematuria. TECHNIQUE: Axial images were obtained from above the diaphragm to the pubic rami in the axial plane a t 5 mm thick sections. Reconstructed images are reviewed on the computer in the coronal plane. CONTRAST: mL of . Study performed without Oral Contrast DLP: 864.2 mGycm, Automated exposure control for dose reduction was used. FINDINGS: Limited CT sections are obtained the lung bases. The lung bases are clear. CT ABDOMEN: Liver: Normal Spleen: Normal Pancreas: Normal Adrenal glands: The adrenal glands are normal. Gallbladder: Normal Kidneys: No masses are evident. No hydronephrosis is present. No cysts are present. No renal stone s identified. Aorta: Minimal Vascular calcification is within the aorta. Inferior vena cava: Normal. CT PELVIS: Loops of bowel within the abdomen and pelvis are normal. Diverticular changes are within the sigmoid colon. No acute diverticulitis. There are loops of bowel which are incompletely distended or lack oral contrast limiting their evaluation. Appendix: Normal as visualized. Urinary bladder: Normal. Genitourinary structures: Uterus and ovaries are not identified Osseous structures: No suspicious lytic or sclerotic lesions. Degenerative changes lower lumbar spine . IMPRESSION: 1. No suspicious abnormality to account for hematuria. 2. Diverticulosis without acute diverticulitis [facility], , 05/16/2025 2:26 PM
[2025-05-16] MEDS: cefTRIAXone IN SWFI 1,000 MG/10 ML SYRINGE IVP STA (15:14)
[2025-05-16 15:26] VITALS: BP 161/94; PULSE 84; RESP 18; TEMP 98.3
== END 2025-05-16 15:26 | disposition home or self-care (01) ==
LOC: EC 10:42
DX: R31.9 Hematuria, unspecified (principal); B37.49 Other urogenital candidiasis; F17.290 Nicotine dependence, other tobacco product, uncomplicated; Z88.7 Allergy status to serum and vaccine; Z88.8 Allergy status to other drugs, medicaments and biological substances
CPT/HCPCS: 36415; 80053; 85025; 81001; 87086; 87077; 87186; 74176; 99284; 96374; J0696